=== PATIENT | male | born 1960 | race Caucasian/White ===

== ENCOUNTER 2016-09-22 15:54 | Emergency (ER) | payer OTHER | END 2016-09-22 19:19 | disposition home or self-care (01) | LOC: ER 15:54 | DX: J20.9 Acute bronchitis, unspecified (principal); J30.2 Other seasonal allergic rhinitis; F17.210 Nicotine dependence, cigarettes, uncomplicated; Z79.899 Other long term (current) drug therapy; Z88.5 Allergy status to narcotic agent | CPT/HCPCS: 87502 ==